=== PATIENT | female | born 1955 | race Caucasian/White ===

== ENCOUNTER → 2021-09-21 | Outpatient (CLI) | payer MEDICARE, OTHER | LOC: WOUNDCARE 13:33 | PROVIDERS: ATTEND Family Medicine | DX: L97.421 Non-pressure chronic ulcer of left heel and midfoot limited to breakdown of skin (principal); E11.621 Type 2 diabetes mellitus with foot ulcer; E66.01 Morbid (severe) obesity due to excess calories; E11.65 Type 2 diabetes mellitus with hyperglycemia; E11.40 Type 2 diabetes mellitus with diabetic neuropathy, unspecified; I70.244 Atherosclerosis of native arteries of left leg with ulceration of heel and midfoot; Z79.52 Long term (current) use of systemic steroids | CPT/HCPCS: 99204 ==

== ENCOUNTER → 2021-11-02 | Outpatient (CLI) | payer MEDICARE | LOC: WOUNDCARE 14:28 | PROVIDERS: ATTEND Family Medicine | DX: L97.422 Non-pressure chronic ulcer of left heel and midfoot with fat layer exposed (principal); E11.621 Type 2 diabetes mellitus with foot ulcer; L03.116 Cellulitis of left lower limb; I70.244 Atherosclerosis of native arteries of left leg with ulceration of heel and midfoot; E66.01 Morbid (severe) obesity due to excess calories; E11.65 Type 2 diabetes mellitus with hyperglycemia; Z79.52 Long term (current) use of systemic steroids; E55.9 Vitamin D deficiency, unspecified | CPT/HCPCS: 11042; A6197; G0463 ==

== ENCOUNTER → 2021-11-10 | Outpatient (CLI) | payer MEDICARE | LOC: WOUNDCARE 13:13 | PROVIDERS: ATTEND Family Medicine | DX: L97.422 Non-pressure chronic ulcer of left heel and midfoot with fat layer exposed (principal); E11.621 Type 2 diabetes mellitus with foot ulcer; I70.244 Atherosclerosis of native arteries of left leg with ulceration of heel and midfoot; E66.01 Morbid (severe) obesity due to excess calories; E11.65 Type 2 diabetes mellitus with hyperglycemia; E55.9 Vitamin D deficiency, unspecified; L03.116 Cellulitis of left lower limb; M20.42 Other hammer toe(s) (acquired), left foot; R26.89 Other abnormalities of gait and mobility; Z79.52 Long term (current) use of systemic steroids | CPT/HCPCS: 11042; A6197; G0463 ==

== ENCOUNTER → 2021-11-17 | Outpatient (CLI) | payer MEDICARE, OTHER ==
--- NOTE | 2021-11-17 17:37 | Diagnostic Imaging Report ---
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 Type II diabetes, morbid obesity. COMPARISON: None available. FINDINGS AND IMPRESSION: 1. Doppler imaging was utilized to obtain arterial tracings of the bilateral dorsalis pedis and posterior tibial arteries, which were then used to calculate the ankle-brachial index. 2. The ALEKS on the right is 1.52 and on the left is 1.17. Dictated by: Dictated on workstation # [id number]
== END ==
LOC: RAD 13:58
PROVIDERS: ATTEND Family Medicine
DX: E11.621 Type 2 diabetes mellitus with foot ulcer (principal); I73.9 Peripheral vascular disease, unspecified; E66.01 Morbid (severe) obesity due to excess calories
CPT/HCPCS: 93923

== ENCOUNTER → 2021-11-17 | Outpatient (CLI) | payer MEDICARE | LOC: WOUNDCARE 15:25 | PROVIDERS: ATTEND Family Medicine | DX: E11.621 Type 2 diabetes mellitus with foot ulcer (principal); E11.52 Type 2 diabetes mellitus with diabetic peripheral angiopathy with gangrene; I96 Gangrene, not elsewhere classified; L97.422 Non-pressure chronic ulcer of left heel and midfoot with fat layer exposed; I70.244 Atherosclerosis of native arteries of left leg with ulceration of heel and midfoot; E66.01 Morbid (severe) obesity due to excess calories; E11.65 Type 2 diabetes mellitus with hyperglycemia; E55.9 Vitamin D deficiency, unspecified; M20.42 Other hammer toe(s) (acquired), left foot; Z68.43 Body mass index [BMI] 50.0-59.9, adult; Z79.52 Long term (current) use of systemic steroids | CPT/HCPCS: 11042; A6197; G0463 ==

== ENCOUNTER → 2021-11-24 | Outpatient (CLI) | payer MEDICARE | LOC: WOUNDCARE 14:38 | PROVIDERS: ATTEND Family Medicine | DX: E11.621 Type 2 diabetes mellitus with foot ulcer (principal); L97.422 Non-pressure chronic ulcer of left heel and midfoot with fat layer exposed; I70.244 Atherosclerosis of native arteries of left leg with ulceration of heel and midfoot; E66.01 Morbid (severe) obesity due to excess calories; E11.65 Type 2 diabetes mellitus with hyperglycemia; E55.9 Vitamin D deficiency, unspecified; M20.42 Other hammer toe(s) (acquired), left foot; E11.52 Type 2 diabetes mellitus with diabetic peripheral angiopathy with gangrene; I96 Gangrene, not elsewhere classified; R26.89 Other abnormalities of gait and mobility; Z68.43 Body mass index [BMI] 50.0-59.9, adult; Z79.52 Long term (current) use of systemic steroids | CPT/HCPCS: 11042; A6021; A6212; G0463 ==

== ENCOUNTER → 2021-11-30 | Outpatient (CLI) | payer MEDICARE | LOC: WOUNDCARE 15:05 | PROVIDERS: ATTEND Family Medicine | DX: E11.621 Type 2 diabetes mellitus with foot ulcer (principal); L97.422 Non-pressure chronic ulcer of left heel and midfoot with fat layer exposed; I70.244 Atherosclerosis of native arteries of left leg with ulceration of heel and midfoot; E66.01 Morbid (severe) obesity due to excess calories; E11.65 Type 2 diabetes mellitus with hyperglycemia; M20.42 Other hammer toe(s) (acquired), left foot; E55.9 Vitamin D deficiency, unspecified; Z79.52 Long term (current) use of systemic steroids; Z68.43 Body mass index [BMI] 50.0-59.9, adult | CPT/HCPCS: 11042; G0463 ==

== ENCOUNTER → 2021-12-08 | Outpatient (CLI) | payer MEDICARE | LOC: WOUNDCARE 14:31 | PROVIDERS: ATTEND Family Medicine | DX: E11.621 Type 2 diabetes mellitus with foot ulcer (principal); L97.422 Non-pressure chronic ulcer of left heel and midfoot with fat layer exposed; I70.244 Atherosclerosis of native arteries of left leg with ulceration of heel and midfoot; E66.01 Morbid (severe) obesity due to excess calories; E11.65 Type 2 diabetes mellitus with hyperglycemia; E55.9 Vitamin D deficiency, unspecified; M20.42 Other hammer toe(s) (acquired), left foot; E11.52 Type 2 diabetes mellitus with diabetic peripheral angiopathy with gangrene; I96 Gangrene, not elsewhere classified; Z79.52 Long term (current) use of systemic steroids; Z68.43 Body mass index [BMI] 50.0-59.9, adult | CPT/HCPCS: 15275; A6212; G0463 ==

== ENCOUNTER → 2021-12-14 | Outpatient (CLI) | payer MEDICARE | LOC: WOUNDCARE 13:52 | PROVIDERS: ATTEND Family Medicine | DX: E11.621 Type 2 diabetes mellitus with foot ulcer (principal); L97.422 Non-pressure chronic ulcer of left heel and midfoot with fat layer exposed; I70.244 Atherosclerosis of native arteries of left leg with ulceration of heel and midfoot; E66.01 Morbid (severe) obesity due to excess calories; E11.52 Type 2 diabetes mellitus with diabetic peripheral angiopathy with gangrene; I96 Gangrene, not elsewhere classified; E11.65 Type 2 diabetes mellitus with hyperglycemia; Z79.52 Long term (current) use of systemic steroids; E55.9 Vitamin D deficiency, unspecified; M20.42 Other hammer toe(s) (acquired), left foot; Z68.43 Body mass index [BMI] 50.0-59.9, adult | CPT/HCPCS: 15275; G0463 ==

== ENCOUNTER → 2021-12-22 | Outpatient (CLI) | payer MEDICARE | LOC: WOUNDCARE 14:32 | PROVIDERS: ATTEND Family Medicine | DX: E11.621 Type 2 diabetes mellitus with foot ulcer (principal); L97.422 Non-pressure chronic ulcer of left heel and midfoot with fat layer exposed; I70.244 Atherosclerosis of native arteries of left leg with ulceration of heel and midfoot; E11.52 Type 2 diabetes mellitus with diabetic peripheral angiopathy with gangrene; I96 Gangrene, not elsewhere classified; E66.01 Morbid (severe) obesity due to excess calories; E11.65 Type 2 diabetes mellitus with hyperglycemia; E55.9 Vitamin D deficiency, unspecified; M20.42 Other hammer toe(s) (acquired), left foot; Z68.43 Body mass index [BMI] 50.0-59.9, adult; Z79.52 Long term (current) use of systemic steroids | CPT/HCPCS: 11042; A6197; G0463 ==

== ENCOUNTER → 2021-12-29 | Outpatient (CLI) | payer MEDICARE | LOC: WOUNDCARE 14:36 | PROVIDERS: ATTEND Family Medicine | DX: E11.621 Type 2 diabetes mellitus with foot ulcer (principal); L97.422 Non-pressure chronic ulcer of left heel and midfoot with fat layer exposed; E66.01 Morbid (severe) obesity due to excess calories; E11.65 Type 2 diabetes mellitus with hyperglycemia; Z79.52 Long term (current) use of systemic steroids; E55.9 Vitamin D deficiency, unspecified; R26.89 Other abnormalities of gait and mobility; I70.244 Atherosclerosis of native arteries of left leg with ulceration of heel and midfoot; M20.42 Other hammer toe(s) (acquired), left foot | CPT/HCPCS: 15275; G0463 ==

== ENCOUNTER → 2022-01-05 | Outpatient (CLI) | payer MEDICARE | LOC: WOUNDCARE 14:37 | PROVIDERS: ATTEND Family Medicine | DX: L97.422 Non-pressure chronic ulcer of left heel and midfoot with fat layer exposed (principal); E11.621 Type 2 diabetes mellitus with foot ulcer; I70.244 Atherosclerosis of native arteries of left leg with ulceration of heel and midfoot; E66.01 Morbid (severe) obesity due to excess calories; E11.65 Type 2 diabetes mellitus with hyperglycemia; E55.9 Vitamin D deficiency, unspecified; M20.42 Other hammer toe(s) (acquired), left foot; E11.52 Type 2 diabetes mellitus with diabetic peripheral angiopathy with gangrene; R26.89 Other abnormalities of gait and mobility; Z79.52 Long term (current) use of systemic steroids | CPT/HCPCS: 11042; A6207; A6212; G0463 ==

== ENCOUNTER → 2022-01-12 | Outpatient (CLI) | payer MEDICARE | LOC: WOUNDCARE 14:28 | PROVIDERS: ATTEND Family Medicine | DX: E11.621 Type 2 diabetes mellitus with foot ulcer (principal); L97.422 Non-pressure chronic ulcer of left heel and midfoot with fat layer exposed; I70.244 Atherosclerosis of native arteries of left leg with ulceration of heel and midfoot; E66.01 Morbid (severe) obesity due to excess calories; E11.65 Type 2 diabetes mellitus with hyperglycemia; E55.9 Vitamin D deficiency, unspecified; M20.42 Other hammer toe(s) (acquired), left foot; Z68.43 Body mass index [BMI] 50.0-59.9, adult; Z79.52 Long term (current) use of systemic steroids | CPT/HCPCS: 11042; G0463 ==

== ENCOUNTER → 2022-01-25 | Outpatient (CLI) | payer MEDICARE | LOC: WOUNDCARE 14:45 | PROVIDERS: ATTEND Family Medicine | DX: L97.422 Non-pressure chronic ulcer of left heel and midfoot with fat layer exposed (principal); E11.621 Type 2 diabetes mellitus with foot ulcer; I70.244 Atherosclerosis of native arteries of left leg with ulceration of heel and midfoot; E66.01 Morbid (severe) obesity due to excess calories; E11.65 Type 2 diabetes mellitus with hyperglycemia; E55.9 Vitamin D deficiency, unspecified; M20.42 Other hammer toe(s) (acquired), left foot; A49.9 Bacterial infection, unspecified; E11.52 Type 2 diabetes mellitus with diabetic peripheral angiopathy with gangrene; R26.89 Other abnormalities of gait and mobility; Z79.52 Long term (current) use of systemic steroids | CPT/HCPCS: 11042; 87070; 87205; G0463; 87077 ==

== ENCOUNTER → 2022-02-02 | Outpatient (CLI) | payer MEDICARE | LOC: WOUNDCARE 14:37 | PROVIDERS: ATTEND Family Medicine | DX: L97.422 Non-pressure chronic ulcer of left heel and midfoot with fat layer exposed (principal); E11.621 Type 2 diabetes mellitus with foot ulcer; I70.244 Atherosclerosis of native arteries of left leg with ulceration of heel and midfoot; E66.01 Morbid (severe) obesity due to excess calories; E11.65 Type 2 diabetes mellitus with hyperglycemia; E55.9 Vitamin D deficiency, unspecified; M20.42 Other hammer toe(s) (acquired), left foot; L03.116 Cellulitis of left lower limb; B95.2 Enterococcus as the cause of diseases classified elsewhere; E11.52 Type 2 diabetes mellitus with diabetic peripheral angiopathy with gangrene; R26.89 Other abnormalities of gait and mobility; Z79.52 Long term (current) use of systemic steroids | CPT/HCPCS: 11042; A6197; G0463 ==

== ENCOUNTER → 2022-02-09 | Outpatient (CLI) | payer MEDICARE | LOC: WOUNDCARE 14:01 | PROVIDERS: ATTEND Family Medicine | DX: L97.422 Non-pressure chronic ulcer of left heel and midfoot with fat layer exposed (principal); E11.621 Type 2 diabetes mellitus with foot ulcer; I70.244 Atherosclerosis of native arteries of left leg with ulceration of heel and midfoot; E66.01 Morbid (severe) obesity due to excess calories; E11.65 Type 2 diabetes mellitus with hyperglycemia; Z79.52 Long term (current) use of systemic steroids; E55.9 Vitamin D deficiency, unspecified; M20.42 Other hammer toe(s) (acquired), left foot; L03.116 Cellulitis of left lower limb; S90.32XA Contusion of left foot, initial encounter; E11.52 Type 2 diabetes mellitus with diabetic peripheral angiopathy with gangrene; R26.89 Other abnormalities of gait and mobility | CPT/HCPCS: 11042; 87070; 87077; 87181; 87186; 87205; G0463 ==

== ENCOUNTER → 2022-02-16 | Outpatient (CLI) | payer MEDICARE | LOC: WOUNDCARE 14:34 | PROVIDERS: ATTEND Family Medicine | DX: E11.621 Type 2 diabetes mellitus with foot ulcer (principal); S90.32XA Contusion of left foot, initial encounter; L97.422 Non-pressure chronic ulcer of left heel and midfoot with fat layer exposed; I70.244 Atherosclerosis of native arteries of left leg with ulceration of heel and midfoot; E66.01 Morbid (severe) obesity due to excess calories; E11.65 Type 2 diabetes mellitus with hyperglycemia; E55.9 Vitamin D deficiency, unspecified; M20.42 Other hammer toe(s) (acquired), left foot; L03.116 Cellulitis of left lower limb; X58.XXXA Exposure to other specified factors, initial encounter; Z79.52 Long term (current) use of systemic steroids; Z68.44 Body mass index [BMI] 60.0-69.9, adult | CPT/HCPCS: 11042; A6197; G0463 ==

== ENCOUNTER → 2022-03-02 | Outpatient (CLI) | payer MEDICARE | LOC: WOUNDCARE 14:30 | PROVIDERS: ATTEND Family Medicine | DX: I70.244 Atherosclerosis of native arteries of left leg with ulceration of heel and midfoot (principal); E11.621 Type 2 diabetes mellitus with foot ulcer; E11.65 Type 2 diabetes mellitus with hyperglycemia; L97.422 Non-pressure chronic ulcer of left heel and midfoot with fat layer exposed; E66.01 Morbid (severe) obesity due to excess calories; M10.072 Idiopathic gout, left ankle and foot; M20.42 Other hammer toe(s) (acquired), left foot; E55.9 Vitamin D deficiency, unspecified; R26.89 Other abnormalities of gait and mobility; Z79.52 Long term (current) use of systemic steroids; Z68.44 Body mass index [BMI] 60.0-69.9, adult | CPT/HCPCS: 99212 ==

== ENCOUNTER → 2022-03-10 | Outpatient (CLI) | payer MEDICARE, OTHER ==
--- NOTE | 2022-03-10 16:53 | Diagnostic Imaging Report ---
CLINICAL INDICATION: Patient with low back pain, left hip pain. EXAM: X-ray of the lumbar spine, 3 views. COMPARISON: None. FINDINGS: There is limited visualization of the lumbosacral region due to patient body habitus. There is no acute lumbar spine fracture or dislocation. Incompletely imaged left curvature of the thoracolumbar spine. There are hypertrophic spurs involving the spine and lower lumbar spine with facet arthropathy. IMPRESSION: 1: There is limited visualization of the lower lumbar region due to patient body habitus. 2: There is degenerative disease of the lumbar spine with no acute fracture or dislocation, as visualized. If there is concern for fracture, CT scan would better evaluate. Dictated by: Dictated on workstation # [id number]
--- NOTE | 2022-03-10 17:35 | Diagnostic Imaging Report ---
HIP, LEFT, 2 VIEWS INDICATION: Left hip pain. COMPARISON: None available. TECHNIQUE: Two views of the left hip. FINDINGS: Alignment is normal. There is an osseous bump along the lateral aspect of the femoral head-neck junction, which can predispose to femoroacetabular impingement. Mild joint space narrowing in the superior aspect of the hip. No features of avascular necrosis in the femoral head. Visualized portions of the left SI joint are normal. IMPRESSION: Mild osteoarthritis of the left hip. Dictated by: Dictated on workstation # [id number]
== END ==
LOC: RAD 14:38
PROVIDERS: ATTEND Nurse Practitioner Family
DX: M47.816 Spondylosis without myelopathy or radiculopathy, lumbar region (principal); M16.12 Unilateral primary osteoarthritis, left hip
CPT/HCPCS: 72100; 73502

== ENCOUNTER → 2022-03-13 | Outpatient (CLI) | payer MEDICARE, OTHER ==
[2022-03-13 16:32] LABS: BILIRUBIN,URINE NEGATIVE (NEGATIVE); CLARITY,URINE CLEAR; COLOR,URINE YELLOW; GLUCOSE, URINE (UA) 2+ (NEGATIVE); KETONES,URINE NEGATIVE (NEGATIVE); LEUKOCYTE ESTERASE ,URINE NEGATIVE (NEGATIVE); NITRITE,URINE NEGATIVE (NEGATIVE); PH,URINE 6.5 (5-9); PROTEIN,URINE NEGATIVE (NEGATIVE)
[2022-03-13 16:42] LABS: BACTERIA,URINE NEGATIVE /HPF; SQUAMOUS EPITHELIAL CELL,UR 0-2 /HPF
== END ==
LOC: LAB 15:52
PROVIDERS: ATTEND Internal Medicine
DX: R30.0 Dysuria (principal); R50.9 Fever, unspecified
CPT/HCPCS: 81000

== ENCOUNTER → 2022-03-20 | Outpatient (CLI) | payer MEDICARE, OTHER | LOC: WOUNDCARE 14:51 | PROVIDERS: ATTEND Family Medicine | DX: E11.621 Type 2 diabetes mellitus with foot ulcer (principal); L97.422 Non-pressure chronic ulcer of left heel and midfoot with fat layer exposed; I70.244 Atherosclerosis of native arteries of left leg with ulceration of heel and midfoot; E11.65 Type 2 diabetes mellitus with hyperglycemia; E66.01 Morbid (severe) obesity due to excess calories; E55.9 Vitamin D deficiency, unspecified; M20.42 Other hammer toe(s) (acquired), left foot; M10.072 Idiopathic gout, left ankle and foot; L84 Corns and callosities; Z79.52 Long term (current) use of systemic steroids; Z68.44 Body mass index [BMI] 60.0-69.9, adult | CPT/HCPCS: 11042; A6212; G0463 ==

== ENCOUNTER → 2022-04-06 | Outpatient (CLI) | payer MEDICARE, OTHER | LOC: WOUNDCARE 13:00 | PROVIDERS: ATTEND Family Medicine | DX: E11.621 Type 2 diabetes mellitus with foot ulcer (principal); L97.422 Non-pressure chronic ulcer of left heel and midfoot with fat layer exposed; I70.244 Atherosclerosis of native arteries of left leg with ulceration of heel and midfoot; E66.01 Morbid (severe) obesity due to excess calories; E11.65 Type 2 diabetes mellitus with hyperglycemia; E55.9 Vitamin D deficiency, unspecified; M20.42 Other hammer toe(s) (acquired), left foot; M10.072 Idiopathic gout, left ankle and foot; L84 Corns and callosities; E11.52 Type 2 diabetes mellitus with diabetic peripheral angiopathy with gangrene; R26.89 Other abnormalities of gait and mobility; Z79.52 Long term (current) use of systemic steroids | CPT/HCPCS: 11042; A6197; G0463 ==

== ENCOUNTER → 2022-04-27 | Outpatient (CLI) | payer MEDICARE, OTHER | LOC: WOUNDCARE 14:30 | PROVIDERS: ATTEND Family Medicine | DX: E11.621 Type 2 diabetes mellitus with foot ulcer (principal); I70.244 Atherosclerosis of native arteries of left leg with ulceration of heel and midfoot; L97.422 Non-pressure chronic ulcer of left heel and midfoot with fat layer exposed; E66.01 Morbid (severe) obesity due to excess calories; E11.65 Type 2 diabetes mellitus with hyperglycemia; E55.9 Vitamin D deficiency, unspecified; Z79.52 Long term (current) use of systemic steroids; M20.42 Other hammer toe(s) (acquired), left foot; R26.89 Other abnormalities of gait and mobility; M10.072 Idiopathic gout, left ankle and foot; L84 Corns and callosities; E11.52 Type 2 diabetes mellitus with diabetic peripheral angiopathy with gangrene | CPT/HCPCS: 11042; G0463 ==

== ENCOUNTER → 2022-05-18 | Outpatient (CLI) | payer MEDICARE, OTHER | LOC: WOUNDCARE 14:34 | PROVIDERS: ATTEND Family Medicine | DX: E11.621 Type 2 diabetes mellitus with foot ulcer (principal); L97.422 Non-pressure chronic ulcer of left heel and midfoot with fat layer exposed; I70.244 Atherosclerosis of native arteries of left leg with ulceration of heel and midfoot; E66.01 Morbid (severe) obesity due to excess calories; E11.65 Type 2 diabetes mellitus with hyperglycemia; Z79.52 Long term (current) use of systemic steroids; E55.9 Vitamin D deficiency, unspecified; M20.42 Other hammer toe(s) (acquired), left foot; R26.89 Other abnormalities of gait and mobility; M10.072 Idiopathic gout, left ankle and foot; L84 Corns and callosities | CPT/HCPCS: 11042; G0463 ==

== ENCOUNTER → 2022-06-15 | Outpatient (CLI) | payer MEDICARE, OTHER | LOC: CARD 13:00 | PROVIDERS: ATTEND Nurse Practitioner Family | DX: I10 Essential (primary) hypertension (principal) | CPT/HCPCS: 93005 ==